=== PATIENT | male | born 1980 | race Caucasian/White ===

== ENCOUNTER 2023-07-08 19:15 | Emergency (ER) | payer OTHER ==
[~2023-07-08] VITALS: Ht 182.9 cm; Wt 88.5 kg
[~2023-07-08 19:15] MED LIST: ARIP10 PO; AZIT250 PO; CEPH500 PO; CITA20 PO; CYCL10 PO; DIAZ5 PO; DOXE10 PO; DOXY100 PO; Doxepin HCl10 MG; FAMO20 PO; HYDACE5 PO; HYDPAM25 PO; HYDR1TAB94 PO; NAPR500 PO; Norco 5-325 Ta1 EACH PO; OXYACE5T PO; PRED10 PO; PROACE100 PO; PROM25 PO; RXHYD5325 PO; RXOXYACE PO; RXPROACE PO; SUCR1 PO; SULTRIDS PO; Ultram50 MG PO; Veetids 500500 MG PO
[2023-07-08] MEDS ORDERED: Amitriptyline H10 MG PO (19:26)
[2023-07-08 20:56] VITALS: BP 136/95
[2023-07-08 21:46] LABS: Source, Urine Voided
[2023-07-08 21:48] LABS: Bilirubin, Urine Neg (Neg); Blood, Urine Neg (Neg); Glucose Qualitative, Urine Neg (Neg); Ketones, Urine Neg (Neg); Leukocyte Esterase, Urine Neg (Neg); Nitrite, Urine Neg (Neg); Protein, Urine Neg (Neg); Specific Gravity, Urine 1.015 (1.003-1.022); Urobilinogen, Urine NORM (Normal)
[2023-07-08 21:51] LABS: BASOPHILS ABSOLUTE AUTO 0.06 K/mm3 (0.00-0.23); BASOPHILS PERCENT AUTO 1 % (0-2); EOSINOPHILS ABSOLUTE AUTO 0.08 K/mm3 (0.00-0.68); EOSINOPHILS PERCENT AUTO 1 % (0-6); Hematocrit 48.3 % (37.0-53.0); Hemoglobin 16.1 g/dL (13.5-17.5); IMMATURE GRAN ABSOLUTE AUTO 0.03 K/mm3 (0.00-0.10); IMMATURE GRAN PERCENT AUTO 0 % (0-1); LYMPHOCYTES ABSOLUTE AUTO 1.87 K/mm3 (0.84-5.20); LYMPHOCYTES PERCENT AUTO 23 % (21-46); MONOCYTES ABSOLUTE AUTO 0.46 K/mm3 (0.16-1.47); MONOCYTES PERCENT AUTO 6 % (4-13); Mean Corpuscular HGB 27.9 pg (26.0-34.0); Mean Corpuscular HGB Conc 33.3 g/dL (31.5-36.5); Mean Corpuscular Volume 84 fL (80-100); Mean Platelet Volume 8.9 fL (9.1-12.4); NEUTROPHILS ABSOLUTE AUTO 5.68 K/mm3 (1.96-9.15); NEUTROPHILS PERCENT AUTO 69 % (41-73); Platelet Count 380 K/mm3 (150-400); RDW Coefficient Variation 13.3 % (11.7-14.2); RDW Standard Deviation 40.7 fL (35.1-46.3); Red Blood Cell Count 5.77 M/mm3 (4.30-5.90); White Blood Cell Count 8.18 K/mm3 (4.00-11.30)
[2023-07-08 21:54] LABS: Appearance, Urine Clear (Clear); Color, Urine Yellow (P-Yellow)
[2023-07-08 22:07] LABS: Bun/Creatinine Ratio 16.5 (12.0-20.0); Calcium, Blood 9.3 mg/dL (8.5-10.1); Creatinine, Blood 1.03 mg/dL (0.60-1.20); Potassium, Blood 4.2 mmol/L (3.5-5.5)
== END 2023-07-08 22:24 | disposition home or self-care (01) ==
LOC: ER 19:15
PROVIDERS: Emergency Medicine
DX: R22.0 Localized swelling, mass and lump, head (principal); R51.9 Headache, unspecified; R35.89 Other polyuria; I10 Essential (primary) hypertension; Z98.2 Presence of cerebrospinal fluid drainage device; Z79.899 Other long term (current) drug therapy; Z87.891 Personal history of nicotine dependence; R35.0 Frequency of micturition
CPT/HCPCS: 80048; 81003; 85025; 99283

== ENCOUNTER 2023-07-10 10:47 | Emergency (ER) | payer OTHER ==
[~2023-07-10] VITALS: Ht 182.9 cm; Wt 86.2 kg
[~2023-07-10 10:47] MED LIST changes: +Amitriptyline H10 MG PO
[2023-07-10 11:04] VITALS: BP 113/96
[2023-07-10 12:06] LABS: U Amphetamine Screen Not Detected; U Barbituate Screen Not Detected; U Benzodiazapine Screen Not Detected; U Buprenorphine Screen Not Detected; U Cannabinoids Screen Not Detected; U Cocaine Screen Not Detected; U Methadone Screen Not Detected; U Methamphetamine Screen Not Detected; U Opiates Screen Not Detected; U Oxycodone Screen Not Detected; U Phencyclidine Screen Not Detected; U Propoxyphene Screen Not Detected
[2023-07-10] MEDS ORDERED: Vistaril50 MG PO (12:19)
== END 2023-07-10 12:18 | disposition home or self-care (01) ==
LOC: ER 10:47
PROVIDERS: Physician Assistant
DX: G47.00 Insomnia, unspecified (principal); Z98.2 Presence of cerebrospinal fluid drainage device; I10 Essential (primary) hypertension; Z88.5 Allergy status to narcotic agent; Z79.899 Other long term (current) drug therapy; Z87.891 Personal history of nicotine dependence
CPT/HCPCS: 70450; 99284-25

== ENCOUNTER 2023-07-22 15:10 | Emergency (ER) | payer OTHER ==
[~2023-07-22] VITALS: Ht 185.4 cm; Wt 81.7 kg
[~2023-07-22 15:10] MED LIST changes: +Vistaril50 MG PO
[2023-07-22 15:18] VITALS: BP 119/70
== END 2023-07-22 16:04 | disposition home or self-care (01) ==
LOC: ER 15:10
DX: L02.415 Cutaneous abscess of right lower limb (principal); I10 Essential (primary) hypertension; Z88.5 Allergy status to narcotic agent; Z79.899 Other long term (current) drug therapy
CPT/HCPCS: 10060; 99282-25

== ENCOUNTER 2024-08-27 01:33 | Observation (INO) | payer OTHER ==
[~2024-08-27] VITALS: Ht 182.9 cm; Wt 95.2 kg
[~2024-08-27 01:33] MED LIST changes: +AMIT50 PO; +Cephalexin500 MG PO; +FLUO10 PO; +HYDPAM50 PO; +NICO21TP TOP; +Seroquel Xr50 MG PO; +TOPICAL PAIN CREAM
[2024-08-27] MEDS ORDERED: Droperidol 5 mg/2 ml Vial IV ONE (01:45)
[2024-08-27 02:09] LABS: BASOPHILS PERCENT AUTO 1 % (0-2); EOSINOPHILS ABSOLUTE AUTO 0.23 K/mm3 (0.00-0.68); EOSINOPHILS PERCENT AUTO 2 % (0-6); Hematocrit 43.6 % (37.0-53.0); Hemoglobin 14.7 g/dL (13.5-17.5); IMMATURE GRAN ABSOLUTE AUTO 0.07 K/mm3 (0.00-0.10); IMMATURE GRAN PERCENT AUTO 1 % (0-1); LYMPHOCYTES ABSOLUTE AUTO 4.12 K/mm3 (0.84-5.20); LYMPHOCYTES PERCENT AUTO 41 % (21-46); MONOCYTES ABSOLUTE AUTO 0.88 K/mm3 (0.16-1.47); MONOCYTES PERCENT AUTO 9 % (4-13); Mean Corpuscular HGB 29.8 pg (26.0-34.0); Mean Corpuscular HGB Conc 33.7 g/dL (31.5-36.5); Mean Corpuscular Volume 88 fL (80-100); Mean Platelet Volume 9.3 fL (9.1-12.4); NEUTROPHILS ABSOLUTE AUTO 4.67 K/mm3 (1.96-9.15); NEUTROPHILS PERCENT AUTO 46 % (41-73); Platelet Count 307 K/mm3 (150-400); RDW Coefficient Variation 15.5 % (11.7-14.2); RDW Standard Deviation 50.4 fL (35.1-46.3); Red Blood Cell Count 4.93 M/mm3 (4.30-5.90); White Blood Cell Count 10.07 K/mm3 (4.00-11.30)
[2024-08-27 02:16] LABS: Ethanol (Alcohol), Blood, Med 284 mg/dL; Salicylate <1.7 mg/dL (2.8-20.0)
[2024-08-27 02:24] LABS: Alanine Aminotransfer (ALT/SGP 36 U/L (12-78); Albumin, Blood 3.7 g/dL (3.4-5.0); Alk Phos 60 U/L (50-136); Anion Gap 13 mmol/L (3-11); Aspartate Aminotrans (AST/SGOT 30 U/L (12-37); Bilirubin, Total 0.2 mg/dL (0.1-1.0); Blood Urea Nitrogen 19 mg/dL (8-24); Bun/Creatinine Ratio 14.7 (12.0-20.0); CO2, Blood 21 mmol/L (21-32); Calcium, Blood 8.4 mg/dL (8.5-10.1); Chloride, Blood 117 mmol/L (98-108); Creatinine, Blood 1.29 mg/dL (0.60-1.20); Globulin, Blood 3.7 g/dL (2.2-4.0); Glomerular Filtration Rate 70 (60-); Glucose, Blood 90 mg/dL (70-99); Potassium, Blood 4.2 mmol/L (3.5-5.5); Sodium, Blood 147 mmol/L (136-145); Total Protein, Blood 7.4 g/dL (6.4-8.2)
[2024-08-27 02:25] LABS: Acetaminophen, Random <2.0 ug/mL (10.0-30.0)
[2024-08-27] MEDS ORDERED: LORazepam 2 MG/ML 1ML Injection IV ONE (03:00)
[2024-08-27] MEDS ORDERED: Methylin ER10 MG (09:36)
[2024-08-27] MEDS ORDERED: PROZAC40 MG PO (09:36)
[2024-08-27] MEDS ORDERED: LORazepam 1 MG Tab PO ONE (09:45)
[2024-08-27 10:02] LABS: Source, Urine Clean Catch
[2024-08-27 10:05] LABS: Appearance, Urine Clear (Clear); Bilirubin, Urine Neg (Neg); Blood, Urine Neg (Neg); Color, Urine Yellow (P-Yellow); Glucose Qualitative, Urine Neg (Neg); Ketones, Urine Neg (Neg); Leukocyte Esterase, Urine Neg (Neg); Nitrite, Urine Neg (Neg); Protein, Urine Neg (Neg); Specific Gravity, Urine 1.025 (1.003-1.022); Urobilinogen, Urine NORM (Normal)
[2024-08-27 10:21] LABS: U Amphetamine Screen Not Detected; U Barbituate Screen Not Detected; U Benzodiazapine Screen Not Detected; U Buprenorphine Screen Not Detected; U Cannabinoids Screen Not Detected; U Cocaine Screen Not Detected; U Methadone Screen Not Detected; U Methamphetamine Screen Not Detected; U Opiates Screen Not Detected; U Oxycodone Screen Not Detected; U Phencyclidine Screen Not Detected
[2024-08-27] MEDS ORDERED: FLUoxetine HCL 20 MG CAP PO ONE (15:50)
[2024-08-27] MEDS ORDERED: Methylphenidate HCL 10 MG TAB PO ONE (15:50)
[2024-08-28 09:00] VITALS: BP 134/90
[2024-08-28] MEDS ORDERED: FLUoxetine HCL 20 MG CAP PO SCH (09:10)
[2024-08-28] MEDS ORDERED: Methylphenidate HCL 10 MG TAB PO ONE (09:15)
[2024-08-28] MEDS ORDERED: Methylphenidate HCL 5 MG TAB PO ONE (10:00)
== END 2024-08-28 10:42 | disposition home or self-care (01) ==
LOC: ER 01:33 → EOR 01:34
PROVIDERS: ADMIT Student in an Organized Health Care Education/Training Program
DX: F33.1 Major depressive disorder, recurrent, moderate (principal); F10.229 Alcohol dependence with intoxication, unspecified; F17.210 Nicotine dependence, cigarettes, uncomplicated; R45.851 Suicidal ideations; I10 Essential (primary) hypertension; Z79.899 Other long term (current) drug therapy; Z88.5 Allergy status to narcotic agent
CPT/HCPCS: 80053; 80320; 81003; 85025; 93005; 93010; 96374; 96375; 99285-25; A9270; G0378; G0480; J1790; J2060

== ENCOUNTER 2024-11-06 11:10 | Emergency (ER) | payer OTHER ==
[~2024-11-06] VITALS: Ht 182.9 cm; Wt 90.7 kg
[~2024-11-06 11:10] MED LIST changes: +Methylin ER10 MG; +PROZAC40 MG PO
[2024-11-06 11:24] VITALS: BP 130/97
[2024-11-06 11:54] LABS: BASOPHILS ABSOLUTE AUTO 0.06 K/mm3 (0.00-0.23); BASOPHILS PERCENT AUTO 1 % (0-2); EOSINOPHILS ABSOLUTE AUTO 0.02 K/mm3 (0.00-0.68); EOSINOPHILS PERCENT AUTO 0 % (0-6); Hematocrit 40.3 % (37.0-53.0); Hemoglobin 13.2 g/dL (13.5-17.5); IMMATURE GRAN ABSOLUTE AUTO 0.04 K/mm3 (0.00-0.10); IMMATURE GRAN PERCENT AUTO 1 % (0-1); LYMPHOCYTES ABSOLUTE AUTO 0.87 K/mm3 (0.84-5.20); LYMPHOCYTES PERCENT AUTO 13 % (21-46); MONOCYTES ABSOLUTE AUTO 0.39 K/mm3 (0.16-1.47); MONOCYTES PERCENT AUTO 6 % (4-13); Mean Corpuscular HGB 29.5 pg (26.0-34.0); Mean Corpuscular HGB Conc 32.8 g/dL (31.5-36.5); Mean Corpuscular Volume 90 fL (80-100); Mean Platelet Volume 8.8 fL (9.1-12.4); NEUTROPHILS ABSOLUTE AUTO 5.48 K/mm3 (1.96-9.15); NEUTROPHILS PERCENT AUTO 80 % (41-73); Platelet Count 366 K/mm3 (150-400); RDW Coefficient Variation 12.9 % (11.7-14.2); RDW Standard Deviation 42.5 fL (35.1-46.3); Red Blood Cell Count 4.48 M/mm3 (4.30-5.90); White Blood Cell Count 6.86 K/mm3 (4.00-11.30)
[2024-11-06 12:38] LABS: Albumin, Blood 3.6 g/dL (3.4-5.0); Albumin/Globulin Ratio 0.9 (0.8-1.8); Bilirubin, Total 0.5 mg/dL (0.1-1.0); Bun/Creatinine Ratio 18.2 (12.0-20.0); Calcium, Blood 9.3 mg/dL (8.5-10.1); Creatinine, Blood 0.82 mg/dL (0.60-1.20); Globulin, Blood 3.9 g/dL (2.2-4.0); Potassium, Blood 4.2 mmol/L (3.5-5.5); Total Protein, Blood 7.5 g/dL (6.4-8.2)
[2024-11-06] MEDS ORDERED: CEPH500 PO (13:17)
== END 2024-11-06 13:30 | disposition home or self-care (01) ==
LOC: ER 11:10
PROVIDERS: Student in an Organized Health Care Education/Training Program
DX: L03.115 Cellulitis of right lower limb (principal); I10 Essential (primary) hypertension; Z79.899 Other long term (current) drug therapy; F17.200 Nicotine dependence, unspecified, uncomplicated
CPT/HCPCS: 73562-RT; 80053; 85025; 85651; 86140